=== PATIENT | female | born 1995 | race Caucasian/White ===

== ENCOUNTER 2016-09-27 22:02 | Emergency (ER) | payer OTHER ==
[~2016-09-27] VITALS: Ht 160 cm; Wt 93.0 kg
[~2016-09-27 22:02] MED LIST: FAMO-90 PO; HYDR-4446 PO; ONDA4TAB PO
[2016-09-27 22:19] VITALS: BP 117/77
--- NOTE | 2016-09-27 22:43 | NUR ---
PT TAKEN TO BED 5
--- NOTE | 2016-09-27 22:50 | NUR ---
21Y F BIB SELF C/O EPIGASTRIC PAIN X 1 DAY 8/10 PAIN. PT DENIES ANY N/V/D, SOB, CP AT THE MOMENT. PT STATES SHE WAS DX WITH GALLSTONES 7 MONTHS AGO AND BEEN HAVING PAIN X 3 WEEKS.
--- NOTE | 2016-09-27 23:07 | NUR ---
Dr. Cabrera evaluating patient at bedside.
[2016-09-27] MEDS ORDERED: NACL 0.9% 500 ML IV ONE (23:18)
[2016-09-27] MEDS ORDERED: KETOROLAC 30 MG/ML VIAL IVP ONE (23:20)
[2016-09-27] MEDS ORDERED: ONDANSETRON 4 MG/2 ML VIAL IVP ONE (23:20)
[2016-09-28 00:14] LABS: BASOPHILS # (AUTO) 0.2 K/uL (0.00-0.22); BASOPHILS % (AUTO) 1.9 % (0.0-2.0); EOSINOPHILS # (AUTO) 0.1 K/uL (0-0.4); EOSINOPHILS % (AUTO) 1.7 % (0.0-4.0); HEMATOCRIT 37.5 % (36-48); HEMOGLOBIN 12.6 g/dL (12.0-16.0); LYMPHOCYTES # (AUTO) 3.1 K/uL (2.5-16.5); MEAN CORPUSCULAR HEMOGLOBIN 29 pg (27-31); MEAN CORPUSCULAR HGB CONC 34 g/dL (33-37); MEAN CORPUSCULAR VOLUME 87 fL (80-94); MONOCYTES # (AUTO) 0.6 K/uL (0.8-1.0); MONOCYTES % (AUTO) 7.5 % (1.7-9.3); NEUTROPHILS # (AUTO) 4.2 K/uL (1.8-7.7); NEUTROPHILS % (AUTO) 50.9 % (42.2-75.2); PLATELET COUNT (AUTO) 349 K/uL (140-450); RED BLOOD CELL COUNT(AUTO) 4.32 MIL/uL (4.20-5.40); RED CELL DISTRIBUTION WIDTH 13.1 % (11.6-13.7); WHITE BLOOD COUNT (AUTO) 8.2 K/uL (4.8-10.8)
[2016-09-28 00:24] LABS: ANION GAP 12.9 (8-16); CALCIUM 8.5 mg/dL (8.5-10.1); CARBON DIOXIDE 28.6 mmol/L (21-32); CREATININE 0.7 mg/dL (0.6-1.3); POTASSIUM 3.5 mmol/L (3.5-5.1)
[2016-09-28 00:30] LABS: ALBUMIN 3.7 g/dL (3.4-5.0); TOTAL BILIRUBIN 0.1 mg/dL (0.0-1.0); TOTAL PROTEIN, SERUM 7.9 g/dL (6.4-8.2)
[2016-09-28] MEDS ORDERED: NACL 0.9% 500 ML IV ONE (01:08)
[2016-09-28] MEDS ORDERED: KETOROLAC 30 MG/ML VIAL IVP ONE (01:10)
[2016-09-28] MEDS ORDERED: ONDANSETRON 4 MG/2 ML VIAL IVP ONE (01:10)
[2016-09-28] MEDS ORDERED: ALUMINUM HYD/MAG/SIMETHICONE 30 ML UDC PO ONE (01:15)
[2016-09-28] MEDS ORDERED: DICYCLOMINE HCL LIQUID 10 MG/5 ML UDC PO ONE (01:15)
[2016-09-28] MEDS ORDERED: LIDOCAINE VISCOUS 2% 20 ML UDC PO ONE (01:15)
--- NOTE | 2016-09-28 02:40 | NUR ---
IV removed, catheter intact and site benign. Applied folded 4x4 gauze and tape to stop bleeding.
--- NOTE | 2016-09-28 02:46 | NUR ---
Patient discharged with v/s stable. Written and verbal after care instructions given and explained. Patient alert, oriented and verbalized understanding of instructions. Ambulatory with steady gait. All questions addressed prior to discharge. ID band removed. Patient advised to follow up with PMD. Rx of ZOFRAN ODT 4MG AND PRILOSEC 40MG AND ULTRAM 50MG given. Patient educated on indication of medication including possible reaction and side effects. Opportunity to ask questions provided and answered.
[2016-09-28 02:47] VITALS: BP 127/82
== END 2016-09-28 02:46 | disposition home or self-care (01) ==
LOC: MED 22:02
DX: K29.00 Acute gastritis without bleeding (principal)
CPT/HCPCS: 36415; 76705; 80053; 81025; 82150; 83690; 85025; 96361; 96374; 96375; 99285; J1885; J2405; Q0092; 81002

== ENCOUNTER 2019-03-11 19:54 | Emergency (ER) | payer OTHER ==
[~2019-03-11] VITALS: Ht 157.5 cm; Wt 104.3 kg
[~2019-03-11 19:54] MED LIST changes: +ACET-8386 PO; -HYDR-4446 PO
--- NOTE | 2019-03-11 20:03 | NUR ---
PT AMBULATED TO BED #11
[2019-03-11 20:06] VITALS: BP 133/79
[2019-03-11] MEDS ORDERED: IBUPROFEN 600 MG TAB PO ONE (20:10)
--- NOTE | 2019-03-11 20:10 | NUR ---
FLU SWAB COLLECTED
--- NOTE | 2019-03-11 20:12 | NUR ---
24 Y/O FEMALE PRESENTS TO ED, C/O FLU SYMPTOMS X1 DAY. PT C/O FEVER THAT STARTED YESTERDAY, TOOK TYLENOL. PT C/O NON PRODUCTIVE COUGH. LUNG SOUNDS BILAT CLEAR. NO SIGNS OF SOB/DIFFICULTY BREATHING NOTED. PT DENIES ANY CHEST PAIN. PT C/O N/V; LAST EPISODE WAS THIS AFTERNOON. PT DENIES ANY DIARRHEA OR ABDOMINAL PAIN. BS ACTIVE X4 QUADRANTS. PT AT STABLE CONDITION. ERMD AWARE. WILL CONTINUE TO MONITOR.
[2019-03-11] MEDS ORDERED: IBUPROFEN 600 MG TAB ONE (20:13)
[2019-03-11 22:06] VITALS: BP 133/79
--- NOTE | 2019-03-11 22:06 | NUR ---
PT DISCHARGED WITH PAPERWORK. RX AARON. EDUCATED PT REGARDING MEDICATION AND S/E. EDUCATED PT REGARDING D/C DIAGNOSIS AND INSTRUCTIONS. PT VERBALIZED UNDERSTANDING OF TEACHING. TOLD PT TO FOLLOW UP WITH PCP AND WHEN TO RETURN TO ED. PT AT STABLE CONDITION. NO FEVER NOTED. ALL QUESTIONS ANSWERED.
== END 2019-03-11 22:06 | disposition home or self-care (01) ==
LOC: MED 19:54
DX: R11.10 Vomiting, unspecified (principal); Z90.49 Acquired absence of other specified parts of digestive tract; Z79.891 Long term (current) use of opiate analgesic; Z79.899 Other long term (current) drug therapy
CPT/HCPCS: 74018; 87804; 99284

== ENCOUNTER 2020-05-21 17:23 | Emergency (ER) | payer OTHER ==
[~2020-05-21] VITALS: Ht 157.5 cm; Wt 93.0 kg
[2020-05-21 17:30] VITALS: BP 117/65
--- NOTE | 2020-05-21 18:51 | NUR ---
AMBULATED TO BED 2
--- NOTE | 2020-05-21 18:51 | NUR ---
25 YEAR OLD FEMALE COMPLAINS OF RIGHT KNEE PAIN SINCE THURSDAY. PT STATES THAT SHE FELL ONTO KNEE 3 MONTHS AGO AND HAS BEEN HAVING ON/OFF PAIN. PEDAL PULSE +3 , CAP REFILL < 3 SEC, ROM INTACT, ABLE TO AMBULATE WITH EVEN AND STEADY GAIT. PT AOX4, BREATHING EVEN AND UNLABORED, SKIN WARM AND DRY. BED IN LOWEST POSITION,LOCKED, BED RAIL UPX1. PMH - DENIES ALLERGIES - NKA
--- NOTE | 2020-05-21 19:20 | NUR ---
ENDORSEMENT GIVEN TO KATHLEEN LAZO FOR CONTINUATION OF CARE
--- NOTE | 2020-05-21 19:48 | NUR ---
Patient discharged with v/s stable. Written and verbal after care instructions given and explained. Patient alert, oriented and verbalized understanding of instructions. Ambulatory with steady gait. All questions addressed prior to discharge. ID band removed. Patient advised to follow up with PMD. Rx of Aleve given. Patient educated on indication of medication including possible reaction and side effects. Opportunity to ask questions provided and answered.
[2020-05-21 19:50] VITALS: BP 121/72
== END 2020-05-21 19:44 | disposition home or self-care (01) ==
LOC: MED 17:23
DX: M76.52 Patellar tendinitis, left knee (principal); Z79.899 Other long term (current) drug therapy
CPT/HCPCS: 73562; 99283